=== PATIENT | female | born 1960 | race Caucasian/White ===

== ENCOUNTER 2021-08-20 19:08 | Inpatient (IN) | payer OTHER ==
[~2021-08-20] VITALS: Ht 175.3 cm; Wt 75.3 kg
[2021-08-21 05:18] LABS: HEMOGLOBIN 14.6 gm/dl (12.3-15.3); RED BLOOD COUNT 4.86 M/UL (4.00-5.10); WHITE BLOOD COUNT 7.6 K/UL (4.5-11.0)
[2021-08-21 05:38] LABS: BUN/CREATININE RATIO 13 (0-10)
[2021-08-22 04:20] LABS: RED BLOOD COUNT 4.88 M/UL (4.00-5.10)
[2021-08-22 04:47] LABS: BUN/CREATININE RATIO 18 (0-10)
--- NOTE | 2021-08-22 13:34 | NUR ---
PT TO OR FOR BRONCHOSCOPY
--- NOTE | 2021-08-22 15:31 | NUR ---
PT BACK FROM [facility], CONFUSED STATING THAT SHE SAW THE DEVIL WHILE IN SURGE, TALKING LOUDLY WANTING EVERYONE TO PRAY FOR HER, FAMILY AT BEDSIDE
[2021-08-23 06:42] LABS: RED BLOOD COUNT 4.94 M/UL (4.00-5.10)
[2021-08-23 06:45] LABS: WHITE BLOOD COUNT 13.8 K/UL (4.5-11.0)
[2021-08-23 07:05] LABS: BUN/CREATININE RATIO 19 (0-10)
--- NOTE | 2021-08-23 09:30 | NUR ---
Spoke with Dr. Zapata and notified her that both Dr. Fay and Dr. Whaley stated they are both ok to discharge patient home today. Stated she would place orders for discharge today.
[2021-08-23] MEDS ORDERED: AMLODIPINE BESYL5 MG PO (11:09)
[2021-08-23] MEDS ORDERED: SODIUM CHLORIDE1 G1 PO (11:09)
[2021-08-23] MEDS ORDERED: LOPRESSOR 25 MG25 MG PO (11:09)
[2021-08-23] MEDS ORDERED: AUGMENTIN 875-1 EACH PO ×2 (11:09→12:50)
[2021-08-23] MEDS ORDERED: ZOFRAN ODT 4 MG4 MG PO (11:39)
[2021-08-23] MEDS ORDERED: METOPROLOL TART25 MG PO (12:50)
[2021-08-23] MEDS ORDERED: AMLODIPINE BESY10 MG PO (12:55)
[2021-08-23] MEDS ORDERED: SODIUM CHLORIDE1 G1 GT (12:55)
[2021-08-23] MEDS ORDERED: ZOFRAN ODT 4 MG4 MG GT (12:55)
== END 2021-08-23 13:20 | disposition home or self-care (01) | DRG 181 ==
LOC: CCU 19:08
PROVIDERS: Internal Medicine; Internal Medicine Nephrology; Internal Medicine Pulmonary Disease; ADMIT Internal Medicine
PROC: 07D73ZX Extraction of Thorax Lymphatic, Percutaneous Approach, Diagnostic (ICD-10-PCS; 2021-08-22)
PROC: 0BB Respiratory System, Excision (ICD-10-PCS; 2021-08-22)
PROC: 0B9G8ZX Drainage of Left Upper Lung Lobe, Via Natural or Artificial Opening Endoscopic, Diagnostic (ICD-10-PCS; principal; 2021-08-22 08:15)
DX: C78.00 Secondary malignant neoplasm of unspecified lung (principal); E22.2 Syndrome of inappropriate secretion of antidiuretic hormone; C78.7 Secondary malignant neoplasm of liver and intrahepatic bile duct; Z20.822 Contact with and (suspected) exposure to COVID-19; I44.4 Left anterior fascicular block; F17.210 Nicotine dependence, cigarettes, uncomplicated; R59.1 Generalized enlarged lymph nodes; I10 Essential (primary) hypertension; Z88.6 Allergy status to analgesic agent; Z86.16 Personal history of COVID-19; Z98.51 Tubal ligation status
CPT/HCPCS: 36415; 80053; 81001; 82436; 82533; 82550; 82553; 82962; 83605; 83690; 83930; 83935; 84133; 84295; 84300; 84439; 84443; 84484; 84550; 85025; 85027; 87015; 87070; 87116; 87205; 87206; 87252; J0330; J1100; J1650; J2405; J2543; J2704; J7120

== ENCOUNTER → 2021-09-06 | Outpatient (CLI) | payer OTHER ==
[~2021-09-06] MED LIST: AMLODIPINE BESY10 MG PO; AMLODIPINE BESYL5 MG PO; AUGMENTIN 875-1 EACH PO; LOPRESSOR 25 MG25 MG PO; METOPROLOL TART25 MG PO; NORVASC10 MG PO; ONDANSETRON HCL4 MG PO; PROBIOTIC POWDER PO; PROMETHAZINE HC25 M1 PO; SODIUM CHLORIDE1 G1 GT; SODIUM CHLORIDE1 G1 PO; SODIUM CHLORIDE1 GM PO; ZOFRAN ODT 4 MG4 MG GT; ZOFRAN ODT 4 MG4 MG PO
== END ==
LOC: MRI 10:22
DX: Z12.89 Encounter for screening for malignant neoplasm of other sites (principal); C34.92 Malignant neoplasm of unspecified part of left bronchus or lung
CPT/HCPCS: 36415; 70553; 82565; 84520; A9577

== ENCOUNTER 2021-09-21 05:06 | Observation (INO) | payer OTHER ==
[~2021-09-21] VITALS: Ht 175.3 cm; Wt 72.6 kg
[~2021-09-21 05:06] MED LIST changes: -NORVASC10 MG PO; -SODIUM CHLORIDE1 GM PO
[2021-09-21] MEDS ORDERED: NORVASC10 MG PO (12:40)
[2021-09-21] MEDS ORDERED: LOPRESSOR 25 MG25 MG PO (12:56)
[2021-09-21] MEDS ORDERED: SODIUM CHLORIDE1 GM PO (12:58)
[2021-09-21] MEDS ORDERED: HYDROCODON-ACE1 EAC4 PO (19:00)
--- NOTE | 2021-09-22 07:13 | NUR ---
ROOM AIR O2 SAT 80%
--- NOTE | 2021-09-22 13:38 | NUR ---
PT ROOM AIR SAT 92% NOW. PATIENT DOES NOT WANT OXYGEN. WILL DISCUSS WITH PCP AT FOLLOWUP APPT.
== END 2021-09-22 13:50 | disposition home or self-care (01) ==
LOC: OR 05:06 → PROG CARE 15:54
PROVIDERS: ADMIT Surgery
DX: C34.90 Malignant neoplasm of unspecified part of unspecified bronchus or lung (principal); C78.7 Secondary malignant neoplasm of liver and intrahepatic bile duct; I10 Essential (primary) hypertension; F17.210 Nicotine dependence, cigarettes, uncomplicated; Z88.6 Allergy status to analgesic agent; Z79.899 Other long term (current) drug therapy; Z20.822 Contact with and (suspected) exposure to COVID-19
CPT/HCPCS: 71045; 77001; C1769; C1788; G0378; J0690; J1100; J1642; J2001; J2250; J2370; J2405; J2704; J3010; J7030; J7040; J7120

== ENCOUNTER 2021-09-24 01:43 | Inpatient (IN) | payer OTHER ==
[~2021-09-24] VITALS: Ht 175.3 cm; Wt 71.7 kg
[~2021-09-24 01:43] MED LIST changes: +HYDROCODON-ACE1 EAC4 PO; +NORVASC10 MG PO; +SODIUM CHLORIDE1 GM PO
--- NOTE | 2021-09-27 03:44 | NUR ---
1930 UPON ASSESSMENT OF PATIENT SHE WAS SOA AND WHEEZING. I PLACED A CALL TO THE PROVIDER DR JANE AND HE CAME TO THE FLOOR TO SEE THE PATIENT. HE ORDERED A CHEST X RAY AND THE PATIENT WAS PLACED ON HIGHFLOW NC AND A CONSULT WAS PLACED FOR THE HOSPITALIST TO FOLLOW THE PATIENT. DR JANE STATED HE REVIEWED THE RESYULTS OF THE XRAY HAD NO CONCERNS AT THIS TIME AND TOLD THE PATIENT, MYSELF AND THE PATIENTS DAUGHTEER THAT HE WILL FOLLOW UP IN THE AM.
--- NOTE | 2021-09-27 04:51 | NUR ---
0312 CONTACTED PROVIDER REGARDING PATIENT HR IN 140-150 PATIENT HAS HAD INCREASED SHORTNESS OF BREATH ALL EVENING. THE PATIENT BREATHING IS LABORED AND CHEST APPEARS TO BE ASYMMETRICAL. PROVIDER ORDERED CHEST X RAY AND EGK. UPON THE RESULTS OF CHEST XRAY THE PROVIDER REQUESTED THAT I CALL DR JANE TO PLACE A NEW CHEST TUBE. LOPRESSOR WAS ALSO ORDERED AND ADMINISTERED TO DECREASE THE HEART RATE. WILL CONTINUE TO MONITOR , CONSENT FOR CHEST TUBE PLACEMENT HAS BEEN OBTAINED. THE PATIENT GAVE HER DAUGHTER PERMISSION TO OSIGN CONSENT ON HER BEHALF BECAUSE SHE IS HAVING SUCH A HARD TIME BREATHING.
--- NOTE | 2021-09-27 06:21 | NUR ---
0584 DR JANE CAME TO INSERT A CHEST TUBE AT PATIENTS BEDSIDE. PATIENT TOLERATED WELL AND HAD IMMEDIATE DRAINAGE IN THE CHEST TUBE DRAINAGE SYSTEM. 0615 PATIENT TOLERATED PROCEDURE WELL AND IS BREATHING WITH EASE AND ABLE TO TALK WITHOUT STRUGGLING FOR AIR.
[2021-09-27 06:56] LABS: HEMOGLOBIN 11.5 gm/dl (12.3-15.3); RED BLOOD COUNT 3.89 M/UL (4.00-5.10); WHITE BLOOD COUNT 12.7 K/UL (4.5-11.0)
[2021-09-27 07:22] LABS: BUN/CREATININE RATIO 28 (0-10)
--- NOTE | 2021-09-27 23:13 | NUR ---
2139 UPON ENTERINGH THE PATIENTS ROOM FOR [employer] I NOTICED THAT THE WATER WAS NOT FLUCTUATING WITH THE PATIENTS BREATHING OR COUGHING. UPON FURTHER ASSESSMENT I NOTICED THAT THE SUCTION TUBING WAS DISCONNECTED FROM THAT CHEST TUBE DRAINAGE SYSTEM. SO I RECONNECTED THE SUCTION. I ASKED ANOTHER NURSE TO HELP ASSESS THE SITUATION TO JUST MAKE SURE EVERYTHING WAS CORRECTLY WORKING. UPON FURTHER ASSESSMENT WE NOTICED THAT THE SUCTION WAS SHUT OFF COMPLETELY ON THE WALL. AFTER ASKING THE PATIENT AND FAMILY MEMBER IF THEY KNEW WHY IT WAS OFF THE DAUGHTER STATED "THE GIRL IN THE [place] SCRUBS TURNED IT OFF". I ASKED THE TECH ASSIGNED TO THE PATIENT IF SHE HAD TURNED THE SUCTION OFF IN THE PATIENTS ROOM. SHE STATED " YES I THOUGHT IT WAS HOOKED UP TO AN EXTERNAL CATHETER THAT WASNT WORKING". I EXPLAINED THE IMPORTANCE OF THE CHEST TUBE AND THE PURPOSE OF THE SUCTION AND INSTRUCTED THE TECH TO GET A NURSE AND ASK QUESTIONS IF SHE IS UNSURE OF ANY SITUATION. THE PATIENT IS STABLE AND VITALS ARE ALL WNL, CHEST TUBE FUCTION AND HOOKED UP PROPERLY .
--- NOTE | 2021-09-28 02:30 | NUR ---
0145 PATIENTS DAUGHTER CAME OUT AND ASKED FOR ASSISTANCE. STATED "MOM IS TRYING TO GET OUT OF BED TO USE THE RESTROOM AND IM AFRAID SHE WILL PULL HER CHEST TUBE OUT". UPON ENTERING THE ROOM THE PATIENT WAS ADGITATED AND ATTEMPTING TO PULL THE TUBING FROM THE CHEST TUBE BECAUSE SHE WANTED TO STAND UP AND IT WAS PULLING ON HER. I STATED THAT WE COULG GET HER A BED SIDE COMMODE TO USE SO THAT SHE DIDNT HAVE TO GET UP AND CHANCE DISLODGING THE CHEST TUBE. SHE WAS VERY CONFUSED AND STARTED CALLING OUT NAMES OF PEOPLE THAT WERE NOT IN THE ROOM. HER DAUGHTER STATED "MOM THEY ARENT HER YOUR IN THE HOSPITAL". THE STAFF ASSIST BUTTON WAS PRESSED BECAUSE THE PATIENT BECAME SO ANXIOU, CONFUSED AND ADGITATED THAT WE NEEDED ASSISTANCE TO GET HER BACK IN BED. THE PROVIDER WAS NOTIFIED AND THE PATIENT WAS ORDERED MEDICATION. THE MEDICATION WAS ADMINISTERED AND ORDERS WERE PLACED FOR A CHEST X RAY TO VERIFY PLACEMENT DUE TO THE PATIENT PULLING ON IT. PATIENT IS RESTING COMFORTABLY AT THIS TIME
--- NOTE | 2021-09-28 10:04 | NUR ---
Made MD aware of patients heart rate in the 130's, no new orders at this time.
[2021-09-28 18:43] LABS: HEMOGLOBIN 10.1 gm/dl (12.3-15.3); RED BLOOD COUNT 3.48 M/UL (4.00-5.10); WHITE BLOOD COUNT 12.1 K/UL (4.5-11.0)
[2021-09-28 19:13] LABS: BUN/CREATININE RATIO 53 (0-10)
[2021-09-29 00:56] LABS: ACINETOBACTER BAUMANNII Not Detected (Negative); CANDIDA ALBICANS Not Detected (Negative); CANDIDA KRUSEI Not Detected (Negative); CANDIDA TROPICALIS Not Detected (Negative); ENTEROCOCCUS Not Detected (Negative); HAEMOPHILUS INFLUENZAE Not Detected (Negative); KLEBSIELLA OXYTOCA Not Detected (Negative); KLEBSIELLA PNEUMONIAE Not Detected (Negative); KPC-CARBAPENEM-RESISTANCE GENE Not Detected (Negative); PROTEUS Not Detected (Negative); PSEUDOMONAS AERUGINOSA Not Detected (Negative); SERRATIA MARCESANS Not Detected (Negative); STAPHYLOCOCCUS Not Detected (Negative); STAPHYLOCOCCUS AUREUS Not Detected (Negative); STREP AGALACTIAE (GROUP B) Not Detected (Negative); STREP PYOGENES (GROUP A) Not Detected (Negative); STREPTOCOCCUS Not Detected (Negative); mecA (METHICILLIN RESIST GENE Not Detected (Negative); vanA/B (VANCOMYCIN RESIST GENE Not Detected (Negative)
[2021-09-29 00:57] LABS: ESCHERICHIA COLI DETECTED (Negative)
[2021-09-29 05:41] LABS: RED BLOOD COUNT 3.09 M/UL (4.00-5.10); WHITE BLOOD COUNT 9.7 K/UL (4.5-11.0)
[2021-09-29 05:55] LABS: BUN/CREATININE RATIO 63 (0-10)
[2021-09-30 03:19] LABS: HEMOGLOBIN 8.1 gm/dl (12.3-15.3); RED BLOOD COUNT 2.81 M/UL (4.00-5.10); WHITE BLOOD COUNT 8.9 K/UL (4.5-11.0)
[2021-09-30 03:50] LABS: BUN/CREATININE RATIO 51 (0-10)
[2021-10-01 03:28] LABS: HEMOGLOBIN 8.2 gm/dl (12.3-15.3); RED BLOOD COUNT 2.88 M/UL (4.00-5.10)
[2021-10-01 04:02] LABS: BUN/CREATININE RATIO 51 (0-10)
[2021-10-02 04:30] LABS: HEMOGLOBIN 8.2 gm/dl (12.3-15.3); RED BLOOD COUNT 2.91 M/UL (4.00-5.10); WHITE BLOOD COUNT 11.1 K/UL (4.5-11.0)
[2021-10-02 05:19] LABS: BUN/CREATININE RATIO 54 (0-10)
[2021-10-03 06:09] LABS: RED BLOOD COUNT 2.72 M/UL (4.00-5.10); WHITE BLOOD COUNT 10.4 K/UL (4.5-11.0)
[2021-10-03 06:35] LABS: BUN/CREATININE RATIO 53 (0-10)
--- NOTE | 2021-10-03 10:08 | NUR ---
1. 0724 received call from telemetry stating miranda pulse ox 84%- checked patient and oxygen via nasal cannula off the patient. applied oxygen 8L high flow and instructed to deep breath and miranda follows instructions with no problem and pulse ox 94% per telemetry. dr. nowak was in the room also. 2.@08 watching patient breathing gasping with air, alert and oriented, denies difficulty breathing with RT- Tammy in the room and both of us concerned of the sudden change of breathing. respiratory rate 16, pulse ox 97%. notified dr. estrada by Tammy as I was attending patient. per Tammy estrada acknowledged patient condition and will see patient. family at bedside. patient alert, awake and oriented x 3, carrying conversation with family member. O2 9L via nasal cannula highflow per RT
[2021-10-04 08:05] LABS: BUN/CREATININE RATIO 56 (0-10)
[2021-10-04 08:08] LABS: HEMOGLOBIN 7.5 gm/dl (12.3-15.3); RED BLOOD COUNT 2.69 M/UL (4.00-5.10); WHITE BLOOD COUNT 9.3 K/UL (4.5-11.0)
--- NOTE | 2021-10-04 09:50 | NUR ---
dr. jean seen patient and was informed that family still waiting for family members to make decision on her comfort measures decision.
--- NOTE | 2021-10-04 12:58 | NUR ---
@[address] yee patient heart rate 19 for 6 seconds and 36 and up at [phone]. william yee acknowledged and no order received
[2021-10-05] MEDS ORDERED: IPRAT-ALBUT 0.5-3 ML NEB (09:47)
[2021-10-05] MEDS ORDERED: TRANSDERM-SCOP1 EACH TD (09:47)
[2021-10-05] MEDS ORDERED: STIMULANT LAXA1 EACH PO (09:47)
[2021-10-05] MEDS ORDERED: ATIVAN0.5 MG PO (09:47)
[2021-10-05] MEDS ORDERED: ROXANOL SO10 MG/5 ML SL (09:47)
[2021-10-05 09:58] LABS: WHITE BLOOD COUNT 7.5 K/UL (4.5-11.0)
[2021-10-05] MEDS ORDERED: CEFUROXIME500 MG PO (10:00)
[2021-10-05 10:10] LABS: BUN/CREATININE RATIO 51 (0-10)
[2021-10-05 10:27] LABS: RED BLOOD COUNT 2.42 M/UL (4.00-5.10)
[2021-10-05 10:28] LABS: HEMOGLOBIN 6.6 gm/dl (12.3-15.3)
--- NOTE | 2021-10-05 19:54 | NUR ---
1030 LATE ENTRY... NOTIFIED OG HGB 6.6- write orders
--- NOTE | 2021-10-05 19:55 | NUR ---
1500- aware not able to get i.v. access #[id number] for blood transfusion - orders for picc line, Liz chouhousekeeper supervisor aware and will double check to see if anyone available.
== END 2021-10-05 21:07 | DRG 871 ==
LOC: ER1 01:43 → CDU 02:46 → M/S 09-25 17:19 → CCU 09-28 11:33 → 3 EAST 09-29 12:00 → PROG CARE 09-29 18:39 → M/S 10-03 00:08
PROVIDERS: Internal Medicine; Internal Medicine Pulmonary Disease; ADMIT Surgery
PROC: 5A0955A Assistance with Respiratory Ventilation, Greater than 96 Consecutive Hours, High Flow/Velocity Cannula (ICD-10-PCS; 2021-09-24)
PROC: 0W9B30Z Drainage of Left Pleural Cavity with Drainage Device, Percutaneous Approach (ICD-10-PCS; 2021-09-24)
PROC: 0W9B30Z Drainage of Left Pleural Cavity with Drainage Device, Percutaneous Approach (ICD-10-PCS; 2021-09-27)
PROC: 30233N1 Transfusion of Nonautologous Red Blood Cells into Peripheral Vein, Percutaneous Approach (ICD-10-PCS; principal; 2021-10-05)
DX: A41.51 Sepsis due to Escherichia coli [E. coli] (principal); Z20.822 Contact with and (suspected) exposure to COVID-19; Z66 Do not resuscitate; J96.01 Acute respiratory failure with hypoxia; G93.41 Metabolic encephalopathy; N39.0 Urinary tract infection, site not specified; C34.92 Malignant neoplasm of unspecified part of left bronchus or lung; E22.2 Syndrome of inappropriate secretion of antidiuretic hormone; J95.811 Postprocedural pneumothorax; D69.6 Thrombocytopenia, unspecified; D64.9 Anemia, unspecified; R65.20 Severe sepsis without septic shock; T85.898A Other specified complication of other internal prosthetic devices, implants and grafts, initial encounter; Y83.8 Other surgical procedures as the cause of abnormal reaction of the patient, or of later complication, without mention of misadventure at the time of the procedure; J44.9 Chronic obstructive pulmonary disease, unspecified; F17.210 Nicotine dependence, cigarettes, uncomplicated; Z88.6 Allergy status to analgesic agent; Z98.51 Tubal ligation status; Z90.710 Acquired absence of both cervix and uterus
CPT/HCPCS: 36415; 36430; 71045; 71046; 80048; 80053; 81001; 82140; 82550; 82553; 82803; 83605; 84484; 85025; 85027; 86850; 86900; 86901; 86920; 87040; 87077; 87086; 87150; 87186; 93005; 94640; 94760; 99284; C1729; J0692; J0696; J1650; J2185; J2270; J3370; J3486; J7030; J7040; J7050; J7070; P9016; Q9967